=== PATIENT | female | born 2000 | race Caucasian/White ===

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

== ENCOUNTER 2021-06-20 23:40 | Emergency (ER) | payer OTHER ==
--- NOTE | 2021-06-21 01:12 | ED Physician Documentation ---
PD HPI CHEST PAIN - Stated complaint Stated Complaint: CHEST PX - Chief complaint Chief Complaint: Cardiac - History obtained from History obtained from: Patient - History of Present Illness Timing - onset: How many months ago (few months) Timing - details: Intermittant Pain level max: 8 Pain level now: 1 Quality: Tightness, Pain Location: Substernal Radiation: Other (does not radiate) Improved by: Nothing Worsened by: Inspiration (at times there is at least a partial pleuritic component, but not reliably so), Position (lying supine) Associated symptoms: No: Shortness of air, Diaphoresis, Nausea, Vomiting, Feeling faint / dizzy, General Weakness, Palpitations, Cough Recently seen: Not recently seen - Additional information Additional information: c/o midline chest pain and tightness , episodic for few months. This was worse tonight and she became concerned that she might be ignoring symptoms of a ser ious medical problem. She has not been evaluated by a medical practitioner previously for these symptoms. Denies cough, denies fever. Pain is worse with lying supine. There is no definite, reliable pleuritic component. She has no recent trauma, no recent surgery, no leg swelling, no hemoptysis. She does take BCP. Review of Systems Constitutional: reports: Reviewed and negative Cardiac: reports: Chest pain / pressure. denies: Palpitations, Pedal edema, Calf pain Respiratory: reports: Reviewed and negative GI: reports: Reviewed and negative : denies: Now EGA Musculoskeletal: denies: Extremity swelling PD PAST MEDICAL HISTORY - Past Medical History Past Medical History: No - Allergies Allergies/Adverse Reactions: Allergies Allergy/AdvReac Type Severity Reaction Status Date / Time No Known Drug Allergies Allergy Verified 06/20/21 23:42 - Living Situation Living Arrangement: reports: At home PD ED PE NORMAL - Vitals Vital signs reviewed: Yes - General General: Alert and oriented X 3, No acute distress, Well developed/nourished - Neck Neck: Supple, no meningeal sign - Cardiac Cardiac: RRR, No murmur, No gallop, No rub - Respiratory Respiratory: No respiratory distress, Clear bilaterally - Abdomen Abdomen: Soft, Non tender - Extremities Extremities: No edema Results - Vitals Vitals: Oxygen O2 Source Room air - EKG (time done) No standard instances Rate: Rate (enter#) (83) Rhythm: NSR Cummings: Normal Intervals: Normal CA QRS: Normal Ischemia: Normal ST segments, T wave inversion (V3,V4 (biphasic V5)) - Labs Labs: Laboratory Tests 06/21/21 06/21/21 06/21/21 01:51 01:51 01:51 WBC 7.5 RBC 4.03 L Hgb 12.7 Hct 36.6 L MCV 90.8 MCH 31.5 H MCHC 34.7 RDW 11.8 L Plt Count 278 MPV 10.7 Neut # (Auto) 3.0 Lymph # (Auto) 3.5 [place] # (Auto) 0.7 Eos # (Auto) 0.2 Baso # (Auto) 0.0 Absolute Nucleated RBC 0.00 Nucleated RBC % 0.0 D-Dimer < 200.0 L Sodium 135 Potassium 3.8 Chloride 102 Carbon Dioxide 25 Anion Gap 8.0 BUN 14 Creatinine 0.8 Estimated GFR (MDRD) 90 Glucose 109 H Calcium 8.9 - Rads (name of study) chest xray Radiology: Prelim report reviewed, See rad report PD MEDICAL DECISION MAKING - ED course Complexity details: reviewed results, re-evaluated patient, considered differential, d/w patient ED course: unremarkable EKG, CXR, and blood tests. Cannot apply PERC rule due to BCP use. However, suspicion is low for a few reasons (episodic for months, no leg swelling, no definite pleuritic component), and d-dimer is negative. Further testing is not indicated at this time but can be reconsidered in outpatient follow-up. Return precautions discussed as were test results and lack of diagnosis at this time. Departure - Departure Disposition: 01 Home, Self Care Clinical Impression: Chest pain Qualifiers: Chest pain type: unspecified Qualified Code(s): R07.9 - Chest pain, unspecified Condition: Good Instructions: ED Chest Pain Atypical Unkn Cause Follow-Up: Teodora Douglas MD [Primary Care Provider] - Comments: The cause of your symptoms is not clear at this time; the tests performed tonight (blood tests, EKG, chest xray) are unremarkable. Please return if your symptoms worsen. Follow up with your primary care provider for reevaluation if symptoms do not resolve within 3-5 days Discharge Date/Time: 06/21/21 03:30
--- NOTE | 2021-06-21 01:52 | XRAY Report ---
PROCEDURE: Chest 2 View X-Ray INDICATIONS: chest pain TECHNIQUE: 2 view(s) of the chest. COMPARISON: None. FINDINGS: Surgical changes and devices: None. Lungs and pleura: No pleural effusions or pneumothorax. Lungs are clear. Mediastinum: Mediastinal contours are normal. Heart size is normal. Bones and chest wall: No suspicious bony abnormalities. Soft tissues appear unremarkable. IMPRESSION: No acute cardiopulmonary disease. Reviewed by: Samm Anderson MD on 06/21/2021 1:51 AM [facility] Approved by: Samm Anderson MD on 06/21/2021 1:51 AM [facility] Station ID: [id number]
[2021-06-21 01:56] LABS: BASOPHILS % (AUTO) 0.4 %; EOSINOPHILS # (AUTO) 0.2 10^3/uL (0.0-0.7); EOSINOPHILS % (AUTO) 2.4 %; HCT - HEMATOCRIT 36.6 % (37.0-47.0); HGB - HEMOGLOBIN 12.7 g/dL (12.0-16.0); LYMPHOCYTES # (AUTO) 3.5 10^3/uL (1.5-3.5); LYMPHOCYTES % (AUTO) 47.1 %; MEAN CORPUSCULAR HEMOGLOBIN 31.5 pg (27.0-31.0); MEAN CORPUSCULAR HGB CONC 34.7 g/dL (32.0-36.0); MEAN CORPUSCULAR VOLUME 90.8 fL (81.0-99.0); MEAN PLATELET VOLUME 10.7 fL (7.9-10.8); MONOCYTES # (AUTO) 0.7 10^3/uL (0.0-1.0); MONOCYTES % (AUTO) 9.2 %; NEUTROPHILS % (AUTO) 40.8 %; PLT - PLATELET COUNT 278 10^3/uL (130-450); RED BLOOD COUNT 4.03 10^6/uL (4.20-5.40); RED CELL DISTRIBUTION WIDTH 11.8 % (12.0-15.0); WHITE BLOOD COUNT 7.5 x10^3/uL (4.8-10.8)
[2021-06-21 02:02] VITALS: BP 120/80
[2021-06-21 02:03] LABS: CALCIUM 8.9 mg/dL (8.5-10.3); CREATININE 0.8 mg/dL (0.4-1.0); POTASSIUM 3.8 mmol/L (3.5-5.0)
== END 2021-06-21 03:30 | disposition home or self-care (01) ==
LOC: ED 23:40
DX: R07.9 Chest pain, unspecified (principal)
CPT/HCPCS: 36415; 80048; 85025; 85379; 93005; 99284